=== PATIENT | female | born 1955 ===

== ENCOUNTER → 2018-06-17 22:12 | Outpatient (REF) | payer OTHER, SELFPAY ==
[2018-06-17 23:59] LABS: Add Manual Diff / Slide Review NO; Basophils Percent Auto 0.8 % (0-2); Eosinophils Percent Auto 4.1 % (2-4); Hematocrit 43.9 % (36-46); Hemoglobin 14.7 g/dL (12.0-16.0); Lymphocytes Percent Auto 26.6 % (25-40); Mean Corpuscular HGB Conc 33.6 % (30-36); Mean Corpuscular Hemoglobin 29.5 PG (26-34); Mean Corpuscular Volume 87.9 fL (80-100); Monocytes Percent Auto 10.5 % (3-14); Neutrophils Absolute Auto 5100 /uL (3000-5900); Platelet Count 281 X10^3/uL (150-400); Red Cell Distribution Width 13.6 % (11.6-14.8); White Blood Cell Count 8.8 X10^3/uL (4.5-11.0)
[2018-06-18 00:35] LABS: Hemoglobin A1C% w Est Avg Glu 6.1 % (4.0-6.0)
[2018-06-18 01:54] LABS: Thyroid Stimulating Hormone 5.52 uIU/mL (0.47-4.68)
[2018-06-18 02:00] LABS: Alanine Aminotransferase 44 IU/L (9-52); Albumin 4.8 g/dL (3.5-5.0); Albumin Globulin Ratio 1.7 (1.0-2.8); Alkaline Phosphatase 76 U/L (38-126); Aspartate Aminotransferase 28 IU/L (14-36); BUN Creatinine Ratio 17.5 (6-22); Bilirubin Total 0.7 mg/dL (0.2-1.3); Blood Urea Nitrogen 14 mg/dL (7-17); Calcium 10.5 mg/dL (8.4-10.2); Carbon Dioxide 25 mmol/L (22-32); Chloride 101 mmol/L (98-107); Cholesterol 156 mg/dL (140-199); Estimated Glomerular Filt Rate > 60.0 mL/min (>60); Globulin 2.8 g/dL (1.7-4.1); Glucose 87 mg/dL (80-110); HDL Cholesterol 41 mg/dL (40-60); HEMOLYSIS < 15 (0-50); LDL Cholesterol Calculated 65 mg/dL (<100); Potassium 4.6 mmol/L (3.4-5.1); Sodium 141 mmol/L (137-145); Total Protein 7.6 g/dL (6.3-8.2); Triglycerides 251 mg/dL (35-150)
== END ==
LOC: LAB 22:12
PROVIDERS: Visit Provider Family Medicine
DX: R53.83 Other fatigue (principal); E88.81 Metabolic syndrome and other insulin resistance; E03.9 Hypothyroidism, unspecified
CPT/HCPCS: 36415; 80053; 80061; 83036; 84443; 85025